=== PATIENT | male | born 1965 | race Two or more races ===

== ENCOUNTER 2018-12-13 13:01 | Emergency (ER) | payer SELFPAY ==
[~2018-12-13] VITALS: Ht 172.7 cm; Wt 97.0 kg
[2018-12-13 16:40] VITALS: BP 155/107
== END 2018-12-13 23:55 | disposition left against medical advice (07) ==
LOC: ER 16:12
DX: R06.02 Shortness of breath (principal); Z53.21 Procedure and treatment not carried out due to patient leaving prior to being seen by health care provider